=== PATIENT | female | born 1970 ===

== ENCOUNTER → 2018-10-08 21:24 | Outpatient (REF) | payer OTHER, SELFPAY ==
[2018-10-12 17:22] LABS: Mitogen-NIL 9.31 IU/mL; NIL 0.02 IU/mL; QuantiFERON TB NEGATIVE (Negative); TB1-NIL 0.01 IU/mL; TB2-NIL 0.01 IU/mL
== END ==
LOC: LAB 21:24
PROVIDERS: Visit Provider Physician Assistant
DX: Z11.1 Encounter for screening for respiratory tuberculosis (principal)
CPT/HCPCS: 36415; 86480

== ENCOUNTER → 2019-01-04 21:25 | Outpatient (REF) | payer OTHER, SELFPAY ==
[2019-01-05 00:59] LABS: Progesterone, Total 1.06 ng/mL
[2019-01-09 13:16] LABS: Testosterone,Free 4.5
[2019-01-09 20:02] LABS: Estrogen 162.2 pg/mL
== END ==
LOC: LAB 21:25
PROVIDERS: Visit Provider Naturopath
DX: E28.39 Other primary ovarian failure (principal); F50.81 Binge eating disorder
CPT/HCPCS: 36415; 82672; 84144; 84402; 84403